=== PATIENT | female | born 1995 | race Asian ===

== ENCOUNTER 2024-11-14 06:26 | Emergency (ER) | payer BC, OTHER ==
[~2024-11-14] VITALS: Ht 152.4 cm; Wt 50.2 kg
[2024-11-14 06:49] LABS: Urine Bacteria None Seen /hpf (None Seen)
[2024-11-14 07:02] LABS: Urine Blood Negative /uL (Negative); Urine Clarity Clear (Clear); Urine Color Light-Brown (Yellow); Urine Mucus FEW (None Seen); Urine Protein, UAD Negative (Negative); Urine Specific Gravity 1.012 (1.001-1.035); Urine Squamous Epithelial Cell FEW /hpf (<5); Urine Urobilinogen Normal (Negative); Urine WBC 1 /HPF (0-5)
[2024-11-14 07:36] LABS: Alanine Aminotransferase 13 U/L (7-40); Albumin 4.6 g/dL (3.2-4.8); Alkaline Phosphatase 54 U/L (46-116); Anion Gap 10 (5-15); BUN/Creatinine Ratio 10.9 (10.0-20.0); Calcium 9.9 mg/dL (8.7-10.4); Carbon Dioxide 23 mmol/L (20-31); Chloride 106 mmol/L (98-107); Glucose 93 mg/dL (74-106); Lipase 40 U/L (12-53); Potassium 3.8 mmol/L (3.5-5.1); Sodium 139 mmol/L (136-145)
[2024-11-14 07:37] LABS: Bilirubin, Total 0.9 mg/dL (0.2-1.0); Total Protein 7.3 g/dL (5.7-8.2)
[2024-11-14 07:41] LABS: Aspartate Aminotransferase 12 U/L (13-40); Blood Urea Nitrogen 7 mg/dL (9-23)
[2024-11-14 07:42] LABS: Basophils # (auto) 0 10 ^3/uL (0-0.2); Basophils % (auto) 0.4 % (0.0-2.0); Eosinophils # (auto) 0.1 10 ^3/uL (0-0.8); Mean Corpuscular Volume 79.9 fL (80.0-100.0); Monocytes # (auto) 0.4 10 ^3/uL (0-1.3); Neutrophils # (auto) 3.7 10 ^3/uL (1.6-8.6)
[2024-11-14 07:43] LABS: Eosinophils % (auto) 2.7 % (0.0-7.0); Hematocrit 36.6 % (36.0-46.0); Lymphocytes # (auto) 1.2 10 ^3/uL (0.4-5.4); Lymphocytes % (auto) 22.8 % (10.0-50.0); Mean Corpuscular Hemoglobin 26.2 pg (28.0-32.0); Mean Corpuscular Hgb Conc. 32.8 g/dL (32.0-36.0); Monocytes % (auto) 6.7 % (0.0-12.0); Neutrophils % (auto) 67.4 % (37.0-80.0); Nucleated Red Blood Cells % 0.2 %; Platelet Count (auto) 268 10^3/uL (140-450); Red Blood Cells 4.58 10^6/uL (4.0-5.20); Red Cell Distribution Width 16.5 % (11.8-14.3); White Blood Cell 5.5 10^3/uL (4.4-10.8)
[2024-11-14 08:15] VITALS: PULSE 85; RESP 18; O2SAT 98
[2024-11-14] MEDS: SODIUM CHLORIDE 0.9% 1,000 ML IV ONE (08:18)
[2024-11-14] MEDS: KETOROLAC TROMETH 30 MG/ML 1ML VIAL IV ONE (08:18)
[2024-11-14] MEDS: ONDANSETRON HCL 4 MG/2 ML VIAL IV ONE (08:19)
--- NOTE | 2024-11-14 08:52 | DVH ---
Exam: CT CT AB PEL WITH IV CON ONLY History: LLQ PAIN WITH BRBPR Comparison Study: None available at time of dictation. Technique: Multidetector spiral CT of the abdomen was performed from lung bases to pubic symphysis. Axial imaging was performed with intravenous contrast following the uneventful administration of 100 ml Omnipaque 300. Coronal and sagittal multiplanar reformats were obtained from the axial data set b y the technologist. Radiation Dose : 1. Abdomen/Pelvis: CTDIvol 5.32 mGy, DLP 253.6 mGy*cm. Findings: Lung Bases: Lung bases are clear. Visualized portions of the heart and pericardium are unremarkable. Liver: The liver is normal in size. No focal lesions. Gallbladder and Biliary Tree: The gallbladder is unremarkable No intrahepatic or extrahepatic bilia ry ductal dilatation. Spleen: Unremarkable Pancreas: The pancreas enhances normally and there are no focal lesions. The main pancreatic duct i s not dilated Adrenal Glands: Unremarkable Kidneys: Kidneys enhance symmetrically. No calculi or hydronephrosis. GI tract: The stomach is grossly normal in appearance. No evidence of small bowel wall thickening or abnormal dilatation to suggest bowel obstruction. There is mild wall thickening of the rectum. Scat tered stool throughout the rest of the colon. Normal appendix. Peritoneum/mesentery/retroperitoneum. No evidence of free intraperitoneal air. No ascites. No evidenc e of suspicious lymphadenopathy. Abdominal Wall: Unremarkable. Vasculature: Abdominal aorta and main branches are unremarkable. Normal vascular enhancement. Urinary Bladder: Grossly unremarkable for degree of distention. Pelvic Organs: There is a 2.0 cm left adnexal peripherally enhancing cystic lesion. Right ovary is un remarkable. The uterus is unremarkable. Musculoskeletal: No aggressive focal bony lesions, acute fractures or dislocation. IMPRESSION: 1. Mild wall thickening of the rectum. Proctocolitis is not excluded. 2. Left adnexal cystic lesion which may reflect corpus luteal cyst.
[2024-11-14] MEDS: IOHEXOL 300 MG/ML 100ML BOTTLE IJ ONE (08:59)
--- NOTE | 2024-11-14 09:28 | ED.PDOC ---
History of Present Illness HPI Comments 29F previously healthy presents with 5 days of left lower quadrant abdominal pain associated with nausea and bright red blood per rectum. Patient has not had any surgeries in the past has not had any dietary changes. Chief Complaint: Abdominal Pain Time Seen by MD: 06:27 Allergies: Coded Allergies: NO KNOWN ALLERGIES (Unverified , 11/14/24) Information Source: Patient Mode of Arrival: Ambulatory Past Medical History PAST MEDICAL HISTORY: Denies Surgical History: Denies all surgeries [employer] History: No Pertinent [employer] History Gastrointestinal: reports: abdominal pain, blood streaked bowels, rectal bleeding All Other Systems: Reviewed and Negative Physical Exam General Appearance: No Apparent Distress, Normal HEENT: Normal ENT Inspection Neck: Normal Inspection Respiratory: No Respiratory Distress Cardiovascular: No Edema Breast Exam: Deferred Gastrointestinal: Other (Left lower quadrant tenderness) Genitalia: Deferred Pelvic: Deferred Rectal: Deferred Extremities: Normal range of motion Neurologic: No Motor Deficits Cerebellar Function: NOT DONE Reflexes: NOT DONE Skin: Dry, Normal Color, Warm Lymphatic: NOT DONE Was a procedure done? Was a procedure done?: No Differential Dx Considerations may include: Lower GI bleed, diverticulitis, colitis, viral syndrome, constipation X-Ray, Labs, Meds, VS Vital Signs Date Time Temp Pulse Resp B/P (MAP) Pulse Ox O2 Delivery O2 Flow Rate FiO2 11/14/24 08:15 97.7 85 18 122/63 (82) 98 97.7 11/14/24 08:15 85 18 98 Room Air* 0 21 11/14/24 06:33 98.5 89 14 108/72 (84) 100 Lab Test 11/14/24 06:55 11/14/24 06:36 Range/Units White Blood Count 5.5 4.4-10.8 10^3/uL Red Blood Count 4.58 4.0-5.20 10^6/uL Hemoglobin 12.0 L 12.2-16.2 g/dL Hematocrit 36.6 36.0-46.0 % Mean Corpuscular Volume 79.9 L 80.0-100.0 fL Mean Corpuscular Hemoglobin 26.2 L 28.0-32.0 pg Mean Corpuscular Hemoglobin Concent 32.8 32.0-36.0 g/dL Red Cell Distribution Width 16.5 H 11.8-14.3 % Platelet Count 268 140-450 10^3/uL Mean Platelet Volume 8.9 6.9-10.8 fL Neutrophils (%) (Auto) 67.4 37.0-80.0 % Lymphocytes (%) (Auto) 22.8 10.0-50.0 % Monocytes (%) (Auto) 6.7 0.0-12.0 % Eosinophils (%) (Auto) 2.7 0.0-7.0 % Basophils (%) (Auto) 0.4 0.0-2.0 % Neutrophils # (Auto) 3.7 1.6-8.6 10 ^3/uL Lymphocytes # (Auto) 1.2 0.4-5.4 10 ^3/uL Monocytes # (Auto) 0.4 0-1.3 10 ^3/uL Eosinophils # (Auto) 0.1 0-0.8 10 ^3/uL Basophils # (Auto) 0 0-0.2 10 ^3/uL Nucleated Red Blood Cells 0.2 % Sodium Level 139 136-145 mmol/L Potassium Level 3.8 3.5-5.1 mmol/L Chloride Level 106 98-107 mmol/L Carbon Dioxide Level 23 20-31 mmol/L Anion Gap 10 5-15 Blood Urea Nitrogen 7 L 9-23 mg/dL Creatinine 0.64 0.550-1.02 mg/dL Glomerular Filtration Rate Calc 123 >90 mL/min BUN/Creatinine Ratio 10.9 10.0-20.0 Serum Glucose 93 74-106 mg/dL Calcium Level 9.9 8.7-10.4 mg/dL Total Bilirubin 0.9 0.2-1.0 mg/dL Aspartate Amino Transferase (AST) 12 L 13-40 U/L Alanine Aminotransferase (ALT) 13 7-40 U/L Alkaline Phosphatase 54 46-116 U/L Total Protein 7.3 5.7-8.2 g/dL Albumin 4.6 3.2-4.8 g/dL Lipase 40 12-53 U/L Urine Color Light-brown Yellow Urine Clarity Clear Clear Urine pH 5.0 5.0-9.0 Urine Specific [place] 1.012 1.001-1.035 Urine Protein Negative Negative Urine Ketones Trace Negative Urine Blood Negative Negative /uL Urine Nitrite Negative Negative Urine Bilirubin Negative Negative Urine Urobilinogen Normal Negative mg/dL Urine Leukocyte Esterase 3+ Negative /uL Urine RBC 2 0 - 4 /hpf Urine Microscopic WBC 1 0-5 /HPF Urine Squamous Epithelial Cells Few <5 /hpf Urine Bacteria None seen None Seen /hpf Urine Mucus Few None Seen Urine Glucose Normal Normal mg/dL Current Medications Medications (Trade) Dose Ordered Sig/Jovanni Route Start Time Stop Time Status Last Admin Sodium Chloride 1,000 ml @ 1,000 mls/hr Q1H ONCE IV 11/14/24 06:45 11/14/24 07:44 DC 11/14/24 08:18 Ketorolac Tromethamine (Toradol Injection) 15 mg ONCE ONCE IV 11/14/24 06:45 11/14/24 06:46 DC 11/14/24 08:18 Time of 1ST Reevaluation: 09:27 Reevaluation 1ST: Improved Patient Education/Counseling: Diagnosis, Treatment Family Education/Counseling: No Family Present Departure 1 Departure Time of Disposition: 09:27 (Patient presented with abdominal pain that was concerning for possible appendicits, gastritis, cholecystitis, colitis, gastroenteritis, sbo, or orther possible surgical emergency. Data: 1. I ordered and reviewed the result of at least 3 labs including a CBC, BMP, and Urinalysis. 2. I independently interpreted the following tests: CT Abdoment and Pelvis is concerning for proctocolitis .Risk:This patient has a high risk of morbidity due to further diagnostic testing or treatment and may suffer from an acute abdominal process disorder. Workup reveals proctocolitis and lower GI bleed and patient should be admitted for further workup. and possible expert consultation. ) Impression: Primary Impression: Proctocolitis with rectal bleeding Additional Impression: Left sided abdominal pain Disposition: ADMITTED INPATIENT Admit to: Med Surg Condition: Serious Critical Care Note Critical Care Time?: No Stability Stability form required: No Heart Score Heart Score: Heart Score Response (Comments) Value History N/A 0 EKG N/A 0 Age N/A 0 Risk Factors N/A 0 Troponin N/A 0 Total 0 KIERAN JOHNSON MD Nov 14, 2024 09:28
[2024-11-14] MEDS ORDERED: METR-344 PO (09:34)
[2024-11-14] MEDS ORDERED: CIPR-173 PO (09:34)
--- NOTE | 2024-11-14 09:34 | ED.PDOC ---
Departure 1 Departure Time of Disposition: 09:32 (I discussed with the patient the patient would actually like to go home. Patient has excellent follow up and we will discharge patient home with outpatient medication) Impression: Primary Impression: Proctocolitis with rectal bleeding Additional Impression: Left sided abdominal pain Disposition: HOME / SELF CARE / HOMELESS Condition: Stable Additional Instructions: You have proctocolitis This is an infection of your intestines. You were prescribed antibiotics. Please take as directed. For pain you can take: 8am: Tylenol 1000mg Noon: Ibuprofen 400mg with food 4pm: Tylenol 1000mg 8pm: Ibuprofen 400mg with food. You should follow up with your doctor within one week. Please call for an appointment. If your symptoms worsen or you have any other concerns then please return to the ER. e-Prescriptions Ciprofloxacin Hcl (Cipro) 500 Mg Tab 500 MG PO BID for 5 Days, #10 TAB Prov: KIERAN JOHNSON MD 11/14/24 Metronidazole (Flagyl) 500 Mg Tab 1 TAB PO TID for 5 Days, #15 TAB Prov: KIERAN JOHNSON MD 11/14/24 Discharged With: Self KIERAN JOHNSON MD Nov 14, 2024 09:34
[2024-11-14] MEDS: metroNIDAZOLE 500MG/100ML 100 ML IV ONE (09:40)
[2024-11-14] MEDS: ceFAZolin 2 GM/D5W50ml 50 ML IV ONE (10:28)
[2024-11-14 10:41] VITALS: BP 98/66; PULSE 82; RESP 16; TEMP 97.7; O2SAT 93
== END 2024-11-14 11:14 | disposition home or self-care (01) ==
LOC: EEVIPCON 06:26 → ER 06:26
DX: K51.30 Ulcerative (chronic) rectosigmoiditis without complications (principal); K62.5 Hemorrhage of anus and rectum
CPT/HCPCS: 36415; 74177; 80053; 81001; 83690; 85025; 87086; 96361; 96365; 96367; 96375; 99285; J0690; J1885; J3490; J7030; Q9967

== ENCOUNTER → 2025-01-01 | Outpatient (CLI) | payer BC ==
[~2025-01-01] MED LIST: CIPR-173 PO; METR-344 PO
[2025-01-01 08:10] LABS: Basophils # (auto) 0 10 ^3/uL (0-0.2); Basophils % (auto) 0.4 % (0.0-2.0); Eosinophils # (auto) 0.2 10 ^3/uL (0-0.8); Eosinophils % (auto) 2.4 % (0.0-7.0); Hematocrit 37.5 % (36.0-46.0); Hemoglobin 12.3 g/dL (12.2-16.2); Lymphocytes # (auto) 1.7 10 ^3/uL (0.4-5.4); Lymphocytes % (auto) 25.7 % (10.0-50.0); Mean Corpuscular Hgb Conc. 32.8 g/dL (32.0-36.0); Mean Corpuscular Volume 82.1 fL (80.0-100.0); Monocytes # (auto) 0.6 10 ^3/uL (0-1.3); Monocytes % (auto) 8.5 % (0.0-12.0); Neutrophils # (auto) 4.1 10 ^3/uL (1.6-8.6); Platelet Count (auto) 280 10^3/uL (140-450); Red Blood Cells 4.57 10^6/uL (4.0-5.20); Red Cell Distribution Width 15.5 % (11.8-14.3); White Blood Cell 6.5 10^3/uL (4.4-10.8)
[2025-01-01 08:24] LABS: Urine Bacteria FEW /hpf (None Seen); Urine Blood TRACE /uL (Negative); Urine Color Light-Yellow (Yellow); Urine Protein, UAD Negative (Negative); Urine Specific Gravity 1.025 (1.001-1.035); Urine Squamous Epithelial Cell MOD /hpf (<5); Urine Urobilinogen Normal (Negative); Urine WBC 21 /HPF (0-5)
[2025-01-01 08:29] LABS: Urine Clarity Cloudy (Clear)
[2025-01-01 08:34] LABS: Alanine Aminotransferase 11 U/L (7-40); Albumin 4.9 g/dL (3.2-4.8); Alkaline Phosphatase 56 U/L (46-116); Anion Gap 11 (5-15); Aspartate Aminotransferase 12 U/L (13-40); BUN/Creatinine Ratio 16.9 (10.0-20.0); Bilirubin, Total 1.1 mg/dL (0.2-1.0); Blood Urea Nitrogen 11 mg/dL (9-23); Calcium 9.8 mg/dL (8.7-10.4); Carbon Dioxide 25 mmol/L (20-31); Chloride 105 mmol/L (98-107); Cholesterol 164 mg/dL (< 200); Glucose 98 mg/dL (74-106); HDL Cholesterol 58 mg/dL (40-59); LDL Cholesterol 95 mg/dL (< 100); Potassium 4.2 mmol/L (3.5-5.1); Sodium 141 mmol/L (136-145); Total Protein 7.4 g/dL (5.7-8.2); Triglycerides 66 mg/dL (< 150)
== END | disposition home or self-care (01) ==
LOC: LAB 06:56
PROVIDERS: ATTEND Internal Medicine
DX: Z00.01 Encounter for general adult medical examination with abnormal findings (principal)
CPT/HCPCS: 36415; 80053; 80061; 81001; 83036; 84439; 84443; 85025

== ENCOUNTER 2025-05-11 08:39 | Day surgery (SDC) | payer BC ==
[2025-05-08 10:39] LABS: Alanine Aminotransferase 10 U/L (7-40); Alkaline Phosphatase 68 U/L (46-116); Anion Gap 8 (5-15); BUN/Creatinine Ratio 13.4 (10.0-20.0); Carbon Dioxide 27 mmol/L (20-31); Chloride 107 mmol/L (98-107); Glucose 89 mg/dL (74-106); Potassium 4.9 mmol/L (3.5-5.1); Sodium 142 mmol/L (136-145); Total Protein 7.5 g/dL (5.7-8.2)
[2025-05-08 10:42] LABS: Hematocrit 38.6 % (36.0-46.0); Hemoglobin 13.0 g/dL (12.2-16.2); Mean Corpuscular Hemoglobin 27.9 pg (28.0-32.0); Mean Corpuscular Volume 82.5 fL (80.0-100.0); Nucleated Red Blood Cells % 0.0 %
[2025-05-08 10:43] LABS: Albumin 5.1 g/dL (3.2-4.8); Bilirubin, Total 1.4 mg/dL (0.2-1.0); Blood Urea Nitrogen 9 mg/dL (9-23); Calcium 10.5 mg/dL (8.7-10.4)
[2025-05-08 10:48] LABS: Urine Protein, UAD Negative (Negative)
[2025-05-08 10:58] LABS: INR 1.0 (0.9-1.15); Partial Thromboplastin Time 35.0 SEC (24.5-34.5); Prothrombin Time 10.6 sec (9.3-11.8)
[~2025-05-11] VITALS: Ht 152.4 cm; Wt 51.7 kg
[2025-05-11] MEDS ORDERED: LIDOCAINE 1% INJ PF 5ML AMP ONE (10:10)
[2025-05-11] MEDS ORDERED: PROPOFOL 10 MG/ML 20 ML IV ONE ×2 (10:10→10:22)
[2025-05-11 10:27] VITALS: PULSE 89; RESP 15; TEMP 97.6; O2SAT 100
[2025-05-11 10:32] VITALS: PULSE 83; RESP 15; O2SAT 95
--- NOTE | 2025-05-11 10:32 | DVHOP2 ---
Operative Report DATE OF OPERATION: 05/11/25 PROCEDURE: Colonoscopy with cold biopsy. PREOPERATIVE INDICATION: The patient is a 29 -year-old female undergoing colonoscopy for evaluation of intermittent recurrent rectal bleeding POSTOPERATIVE DIAGNOSES: 1. Minimal ileitis of the distal terminal ileum with some superficial aphthous like ulcerations from which biopsies were obtained 2. 1+ internal external hemorrhoids otherwise completely normal colonoscopy examination up to the cecum and terminal ileum PROCEDURE PERFORMED BY: Nupur Amaya M.D. SCOPE: Olympus videocolonoscope. ASA CLASS: 2. PREOPERATIVE MEDICATIONS: Mac Trevor ortega PROCEDURE IN DETAIL: After obtaining an informed consent, the patient was placed on left lateral decubitus position. She was then sedated with the above medications. A rectal examination was performed that was normal. The colonoscope was then passed through the anus into the rectosigmoid and through the descending, transverse, and ascending colon up to the cecum with visualization of the appendiceal orifice, base of the cecum and the ileocecal valve. The colonoscope was then withdrawn. The distal 10 cm of the terminal ileum were visualized There was minimal ileitis with some superficial aphthous like ulcerations in the terminal ileum Terminal ileum biopsies were obtained. No polyps or masses were seen. There was no colitis or diverticular disease. On retroflexion and straight on view the patient did have 1+ internal external hemorrhoids The patient tolerated the procedure well without difficulty. WITHDRAWAL TIME: 6 minutes QUALITY OF THE PREP: [place] Bowel Prep score: 9. COMPLICATIONS : None SPECIMENS: Terminal ileum biopsies DISPOSITION: Stable D/C to home PLAN: 1. Repeat colonoscopy base on biopsy result likely at age 46 2. Resume GI soft diet advance as tolerated 3. Avoid aspirin and NSAIDs; check IBD panel with next lab draw 4. Outpatient follow up with me in 4-6 weeks to review results and discuss further management NUPUR AMAYA MD May 11, 2025 10:32
[2025-05-11 10:50] VITALS: BP 94/53; PULSE 96; RESP 21; O2SAT 100
== END 2025-05-11 11:02 | disposition home or self-care (01) ==
LOC: GI 08:39
PROVIDERS: ATTEND Internal Medicine Gastroenterology
DX: K62.5 Hemorrhage of anus and rectum (principal); K64.0 First degree hemorrhoids; K52.9 Noninfective gastroenteritis and colitis, unspecified
CPT/HCPCS: 36415; 45380; 80053; 81001; 84702; 85025; 85610; 85730; 88305; J2704; J7030

== ENCOUNTER 2025-05-31 08:19 | Outpatient (CLI) | payer BC | END 2025-05-31 17:00 | disposition home or self-care (01) | LOC: LAB 08:19 | PROVIDERS: ATTEND Internal Medicine Gastroenterology | DX: R10.9 Unspecified abdominal pain (principal) | CPT/HCPCS: 83520; 86256; 86671 ==